=== PATIENT | female | born 1965 | race African-American/Black ===

== ENCOUNTER 2019-04-13 19:58 | Emergency (ER) | payer SELFPAY ==
[~2019-04-13] VITALS: Ht 157.5 cm; Wt 68.0 kg
--- NOTE | 2019-04-13 20:10 | NUR ---
Patient ambulated with stable gait. A/Ox4. Patient came for c/o a sore throat and reported that it feels scratchy. No signs of respiratory distress, no sob, no cough.
--- NOTE | 2019-04-13 20:43 | NUR ---
ERMD at bedside for evaluation
[2019-04-13] MEDS ORDERED: CEphaleXIN 500 MG CAPSULE ONE (20:57)
[2019-04-13] MEDS ORDERED: predniSONE 50 MG TABLET ONE (20:57)
[2019-04-13] MEDS ORDERED: CEphaleXIN 500 MG CAPSULE PO ONE (21:00)
[2019-04-13] MEDS ORDERED: predniSONE 50 MG TABLET PO ONE (21:00)
[2019-04-13 21:05] VITALS: BP 145/71
--- NOTE | 2019-04-13 21:05 | NUR ---
Patient discharged to home in stable conditon. Written and verbal after care instructions given. Patient verbalizes understanding of instructions. Patient ambulated with stable gait.
== END 2019-04-13 21:05 | disposition home or self-care (01) ==
LOC: ER 19:58
DX: I88.9 Nonspecific lymphadenitis, unspecified (principal); R05 Cough
CPT/HCPCS: 99283; J7512; A4663

== ENCOUNTER 2020-06-03 15:10 | Emergency (ER) | payer MEDICAID, OTHER ==
[~2020-06-03] VITALS: Ht 160 cm; Wt 59.0 kg
[2020-06-03 15:47] LABS: BASOPHILS % (AUTO) 0.6 % (0.0-2.0); EOSINOPHILS # (AUTO) 0.3 K/uL (0.0-0.7); EOSINOPHILS % (AUTO) 3.9 % (0.0-7.0); HEMATOCRIT 39.8 % (31.2-41.9); HEMOGLOBIN 13.2 g/dL (10.9-14.3); LYMPHOCYTES # (AUTO) 2.1 K/uL (20.0-40.0); LYMPHOCYTES % (AUTO) 28.6 % (20.5-51.5); MEAN CORPUSCULAR HEMOGLOBIN 28.6 uug (24.7-32.8); MEAN CORPUSCULAR HGB CONC 33 g/dL (32.3-35.6); MEAN CORPUSCULAR VOLUME 86.1 fL (75.5-95.3); MONOCYTES # (AUTO) 0.9 K/uL (2.0-10.0); NEUTROPHILS % (AUTO) 54.9 % (38.5-71.5); PLATELET COUNT (AUTO) 249 K/uL (179-408); RED BLOOD CELL COUNT(AUTO) 4.62 MIL/uL (3.63-4.92); WHITE BLOOD COUNT (AUTO) 7.4 K/uL (3.8-11.8)
[2020-06-03 16:04] LABS: BILIRUBIN,DIRECT 0.1 mg/dL (0.0-0.2); BILIRUBIN,TOTAL 0.4 mg/dL (0.2-1.0); CREATININE 0.8 mg/dL (0.6-1.3); POTASSIUM 3.9 mmol/L (3.5-5.1); TOTAL PROTEIN, SERUM 7.6 g/dL (6.4-8.2)
--- NOTE | 2020-06-03 16:38 | NUR ---
Patient discharged to home in stable condition. Written and verbal after care instructions given. Patient verbalizes understanding of instructions. Stressed follow up or return to ER for worsening s/s.
[2020-06-03 16:39] VITALS: BP 110/79
== END 2020-06-03 16:39 | disposition home or self-care (01) ==
LOC: ER 15:10
DX: R07.89 Other chest pain (principal)
CPT/HCPCS: 36415; 70030-TC; 71045; 85025; 85730; 93005; A4663

== ENCOUNTER 2024-10-21 08:37 | Emergency (ER) | payer MEDICAID, OTHER ==
[~2024-10-21] VITALS: Ht 154.9 cm; Wt 68.0 kg
[2024-10-21 08:50] VITALS: O2SAT 97
[2024-10-21] MEDS ORDERED: FAMC500T3 PO (09:16)
[2024-10-21] MEDS ORDERED: FLAS1KIT2 TP (09:16)
[2024-10-21] MEDS ORDERED: FLAS1EAC2 TP (09:16)
== END 2024-10-21 09:26 | disposition home or self-care (01) ==
LOC: ER 08:37
DX: B00.1 Herpesviral vesicular dermatitis (principal); E11.9 Type 2 diabetes mellitus without complications
CPT/HCPCS: A4606; A4663